=== PATIENT | male | born 1990 | race Caucasian/White ===

== ENCOUNTER 2017-04-21 14:37 | Emergency (ER) | payer SELFPAY ==
--- NOTE | 2017-04-21 14:53 | ERPHSYRPT ---
- History of Present Illness Time Seen by Provider: 04/21/17 14:53 Source: family Exam Limitations: no limitations Patient Subjective Stated Complaint: PT BROUGHT IN BY IN LAWS AND SOON TO BE EX , FOR CONCERNS OF BEING SLEEPY TODAY, THEY WHERE AFRAID HE TOOK MEDICINES . PT IS UNDER A LOT OF STRESS. Triage Nursing Assessment: PT ALERT, RESP EASY, SKIN W/D PINK. PT TOOK ONE ADDERALL TODAY AND ONE YESTERDAY, THEY ARE NOT HES MEDS. PT DENIES BEING SUICIDAL OR HOMICIDAL Physician History: 26-year-old male brought into the emergency room by his in-laws, states that he is acting weird, going in and out with his thought process as well as possibly hallucinating. Patient states that he is undergoing lots of stress recently with divorce and at work. Patient denies any suicidal or homicidal ideation and acting totally normal in the emergency room Timing/Duration: today Associated Symptoms: denies symptoms Allergies/Adverse Reactions: UNOBTAINABLE Allergy (Unverified 04/21/17 14:49) Home Medications: No Reportable Medications [No Reported Medications] 04/21/17 [History] Hx Influenza Vaccination/Date Given: No Hx Pneumococcal Vaccination/Date Given: No Immunizations Up to Date: Yes - Review of Systems Constitutional: No Fever, No Chills Eyes: No Symptoms Ears, Nose, & Throat: No Symptoms Respiratory: No Cough, No Dyspnea Cardiac: No Chest Pain, No Edema, No Syncope Abdominal/Gastrointestinal: No Abdominal Pain, No Nausea, No Vomiting, No Diarrhea Genitourinary Symptoms: No Dysuria Musculoskeletal: No Back Pain, No Neck Pain Skin: No Rash Neurological: No Dizziness, No Focal Weakness, No Sensory Changes Psychological: Drug Abuse, Anxiety, Depression, Emotional Lability, Hallucinations, Mood Changes, No Alcohol Abuse, No Suicidal Ideations, No Homicidal Ideations, No Memory Loss Endocrine: No Symptoms All Other Systems: Reviewed and Negative - Past Medical History Pertinent Past Medical History: Yes Psycho-Social History: Attention Deficit Disorder - Past Surgical History Past Surgical History: No - Social History Smoking Status: Current every day smoker Exposure to second hand smoke: Yes Drug Use: marijuana Patient Lives Alone: Yes - Nursing Vital Signs Nursing Vital Signs: Initial Vital Signs Pulse Rate 78 04/21/17 14:40 Respiratory Rate 14 04/21/17 14:40 Blood Pressure 159/85 04/21/17 14:40 O2 Sat by Pulse Oximetry 100 04/21/17 14:40 Pain Scale Pain Intensity 0 - Physical Exam General Appearance: no apparent distress, alert Eye Exam: PERRL/EOMI, eyes nml inspection Ears, Nose, Throat Exam: normal ENT inspection, TMs normal, pharynx normal, moist mucous membranes Neck Exam: normal inspection, non-tender, supple, full range of motion Respiratory Exam: normal breath sounds, lungs clear, No respiratory distress Cardiovascular Exam: regular rate/rhythm, normal heart sounds, normal peripheral pulses Gastrointestinal/Abdomen Exam: soft, normal bowel sounds, No tenderness, No mass Back Exam: normal inspection, normal range of motion, No CVA tenderness, No vertebral tenderness Extremity Exam: normal inspection, normal range of motion, pelvis stable Neurologic Exam: alert, oriented x 3, cooperative, normal mood/affect, nml cerebellar function, nml station & gait, sensation nml, No motor deficits Skin Exam: normal color, warm, dry, No rash Lymphatic Exam: No adenopathy SpO2: 100 Oxygen Delivery: Room Air - Course Nursing assessment & vital signs reviewed: Yes Ordered Tests: Active Orders 24 hr Category Date Time Status Clean Catch Urine Specimen STAT Care 04/21/17 15:35 Active EKG-ER Only STAT Care 04/21/17 14:56 Active IV Insertion STAT Care 04/21/17 15:15 Active CBC W DIFF Stat Lab 04/21/17 15:15 Completed CMP Stat Lab 04/21/17 15:15 Received ETHYL ALCOHOL Stat Lab 04/21/17 15:15 Received SALICYLATE Stat Lab 04/21/17 15:15 Received Urine Triage Profile Stat Lab 04/21/17 14:56 Completed Medication Summary Generic Name Dose Route Start Last Admin Trade Name Freq PRN Reason Stop Dose Admin Sodium Chloride 1,000 mls @ 999 mls/hr 04/21/17 14:56 04/21/17 15:16 Sodium Chloride 0.9% 1000 Ml IV 04/21/17 15:56 999 mls/hr .Q1H1M STA Administration Discontinued Medications Generic Name Dose Route Start Last Admin Trade Name Freq PRN Reason Stop Dose Admin Sodium Chloride Confirm 04/21/17 15:15 Sodium Chloride 0.9% 1000 Ml Administered 04/21/17 15:16 Dose 1,000 mls @ ud .ROUTE .K-MED ONE Lab/Rad Data: Laboratory Result Diagrams 04/21/17 15:15 Laboratory Results 04/21/17 04/21/17 Range/Units 15:15 14:56 WBC 9.1 (4.0-10.5) K/mm3 RBC 5.34 (4.1-5.6) M/mm3 Hgb 16.0 (12.5-18.0) gm/dl Hct 45.2 (42-50) % MCV 84.6 (78-100) fl MCH 30.0 (26-32) pg MCHC 35.4 (32-36) g/dl RDW 13.6 (11.5-14.0) % Plt Count 218 (150-450) K/mm3 MPV 11.4 H (6-9.5) fl Gran % 60.9 (36.0-66.0) % Lymphocytes % 26.4 (24.0-44.0) % Monocytes % 8.1 (0.0-12.0) % Eosinophils % 4.3 (0.00-5.0) % Basophils % 0.3 (0.0-0.4) % Basophils # 0.03 (0-0.4) Urine Opiates Level NEG. (NEGATIVE) Ur Methadone NEG. (NEGATIVE) Urine Barbiturates NEG. (NEGATIVE) Ur Phencyclidine (PCP) NEG. (NEGATIVE) Urine Amphetamine POS. (NEGATIVE) U Benzodiazepine Level NEG. (NEGATIVE) Urine Cocaine NEG. (NEGATIVE) Urine Marijuana (THC) POS. (NEGATIVE) - Progress Progress: improved Counseled pt/family regarding: drug and/or alcohol abuse, lab results, diagnosis , need for follow-up, smoking cessation - Departure Time of Disposition: 15:50 Departure Disposition: Home Clinical Impression: Marijuana use Amphetamine adverse reaction Qualifiers: Encounter type: initial encounter Qualified Code(s): T43.625A - Adverse effect of amphetamines, initial encounter Condition: Stable Critical Care Time: No Referrals: JOSE BHANDARI [ACTIVE STAFF] - Instructions: Dextroamphetamine and Amphetamine.
[2017-04-21] MEDS ORDERED: Sodium Chloride 0.9% 1000 ML 1,000 ML IV STA (14:56)
[2017-04-21] MEDS ORDERED: Sodium Chloride 0.9% 1000 ML 1,000 ML ONE (15:15)
[2017-04-21 15:42] LABS: BASOPHIL % 0.3 % (0.0-0.4); Eosinophil % 4.3 % (0.00-5.0); Granulocytes % 60.9 % (36.0-66.0); Lymphocytes % 26.4 % (24.0-44.0); Mean Cell Volume 84.6 fl (78-100); Mean Platelet Volume 11.4 fl (6-9.5); Monocytes % 8.1 % (0.0-12.0); Platelet Count 218 K/mm3 (150-450); Red Blood Count 5.34 M/mm3 (4.1-5.6); Red Cell Distribution Width 13.6 % (11.5-14.0); White Blood Count 9.1 K/mm3 (4.0-10.5)
[2017-04-21 15:56] LABS: ALBUMIN 4.6 g/dL (3.4-5.0); ALKALINE PHOSPHATASE 50 U/L (46-116); BLOOD UREA NITROGEN 13 mg/dL (9-20); CHLORIDE 105 mEq/L (98-107); Carbon Dioxide 25.4 mEq/L (21-32); ETHYL ALCOHOL < 0.010 % (0.00-0.01); Glucose 107 MG/DL (70-110); Potassium 3.3 mEq/L (3.5-5.1); SGOT/AST 4 U/L (15-37); SGPT/ALT 20 U/L (12-78); SODIUM 141 mEq/L (136-145); Total Protein 7.8 gm/dL (6.4-8.2)
[2017-04-21 16:10] VITALS: BP 138/76; PULSE 84; O2SAT 99
== END 2017-04-21 16:11 | disposition home or self-care (01) ==
LOC: ED 14:37
DX: T43.625A Adverse effect of amphetamines, initial encounter (principal); F12.90 Cannabis use, unspecified, uncomplicated; F19.10 Other psychoactive substance abuse, uncomplicated; R44.3 Hallucinations, unspecified; R45.86 Emotional lability; F39 Unspecified mood [affective] disorder; F41.9 Anxiety disorder, unspecified; F98.8 Other specified behavioral and emotional disorders with onset usually occurring in childhood and adolescence
CPT/HCPCS: 36000; 36415; 80053; 80307; 85025; 93005; 96360; 99284; G0481

== ENCOUNTER 2023-10-04 21:41 | Emergency (ER) | payer SELFPAY ==
[2023-10-04 21:53] VITALS: TEMP 98.1
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
[2023-10-04 22:13] VITALS: O2SAT 100
[2023-10-04 22:34] LABS: Barbiturate,Urine NEGATIVE (NEGATIVE); Benzodiazepine,Urine NEGATIVE (NEGATIVE); Cocaine,Urine NEGATIVE (NEGATIVE); Methadone,Urine NEGATIVE (NEGATIVE); Opiate,Urine NEGATIVE (NEGATIVE); PCP,Urine NEGATIVE (NEGATIVE); THC,Urine POSITIVE (NEGATIVE)
[2023-10-04 22:50] LABS: Amphetamine,Urine POSITIVE (NEGATIVE)
[2023-10-04 23:01] VITALS: BP 143/103; PULSE 92; RESP 14
== END 2023-10-04 23:07 | disposition home or self-care (01) ==
LOC: ED 21:41
DX: Z02.89 Encounter for other administrative examinations (principal)
CPT/HCPCS: 36415; 80307; 99281

== ENCOUNTER 2025-01-22 15:12 | Emergency (ER) | payer OTHER ==
[2025-01-22 15:38] VITALS: PULSE 99; RESP 7; TEMP 96.6; O2SAT 98
--- NOTE | 2025-01-22 15:45 | ERPHSYRPT ---
- History of Present Illness Source: patient Exam Limitations: no limitations Patient Subjective Stated Complaint: three weeks, had sciatica pain. went to [facility] care on sunday and got steroid and muscle relaxer but states it has not been efffective. Pt has been using ice at home to relive the pain Triage Nursing Assessment: pt arrived with back pain that radiates down to left leg, hypertensive. ambulates on own with no assistance. call light within reach, no complaints at this time. Physician History: Patient has a history of back pain. It has been going on for about 3 to 4 days. He was seen at urgent care the other day. They put him on prednisone. His back pain is in the lumbar area it radiates down the back and side of his left leg. It does not go much below his knee. He says occasionally goes on the outer aspect of his left leg. He does not have any neurological deficits. He has no weakness or sensory deficits. He says the pain is stabbing and tingling in and basically described paresthesia.Movement makes it worse rest and certain positions makes it better. He does not have any bowel or bladder dysfunction he has no saddle paresthesia. He is had problems like this in the past. Is a few years ago. He had an x-ray at that time. There was no abnormalities. He has not done any physical therapy. Method of Injury: unknown Allergies/Adverse Reactions: No Known Drug Allergies Allergy (Unverified 10/04/23 21:47) Hx Tetanus, Diphtheria Vaccination/Date Given: No Hx Influenza Vaccination/Date Given: No Hx Pneumococcal Vaccination/Date Given: No Immunizations Up to Date: No Travel Risk - International Travel Have you traveled outside of the country in past 3 weeks: No - Emerging Infectious Disease Are you exhibiting symptoms associated with any current EIDs: No - Review of Systems Constitutional: No Symptoms Eyes: No Symptoms Abdominal/Gastrointestinal: No Symptoms Genitourinary Symptoms: No Symptoms Musculoskeletal: Back Pain Skin: No Symptoms Psychological: No Symptoms - Past Medical History Pertinent Past Medical History: Yes Psycho-Social History: Attention Deficit Disorder - Past Surgical History Past Surgical History: No Neuro Surgical History: No Pertinent History Cardiac: No Pertinent History Respiratory: No Pertinent History Gastrointestinal: No Pertinent History Genitourinary: No Pertinent History Musculoskeletal: No Pertinent History Male Surgical History: No Pertinent History - Social History Smoking Status: Current every day smoker How long have you smoked: 12 years Exposure to second hand smoke: Yes Drug Use: none - Social Determinants of Health Will the patient participate in the screening: Yes Do you worry about a steady place to live?: No Do you have any problems with any of the following?: No known problems, Oven/Stove not working In the past 12 months,have you had to go without utilities?: No Transportation Issues: No Has anyone in your support network made you feel unsafe?: No Have you or anyone in your house had to go w/o enough food: No - Nursing Vital Signs Nursing Vital Signs: Initial Vital Signs Temperature 96.7 F 01/22/25 15:19 Pulse Rate 108 H 01/22/25 15:19 Respiratory Rate 18 01/22/25 15:19 O2 Sat by Pulse Oximetry 100 01/22/25 15:19 Pain Scale Pain Intensity 9 - Physical Exam General Appearance: no apparent distress Eye Exam: PERRL/EOMI Respiratory Exam: normal breath sounds Cardiovascular Exam: tachycardia Gastrointestinal Exam: soft, normal bowel sounds Extremity Exam: normal inspection, pelvis stable Neurologic Exam: alert, oriented x 3, cooperative, No motor deficits, No sensory deficit Skin Exam: normal color, warm, dry SpO2: 98 Ordered Tests: Medication Summary Discontinued Medications Generic Name Dose Route Start Last Admin Trade Name Anthony PRN Reason Stop Dose Admin Nalbuphine HCl 10 mg 01/22/25 15:42 01/22/25 15:49 Nalbuphine Hcl 10 Mg/Ml Ampul IM 01/22/25 15:43 10 mg STAT ONE Administration Nalbuphine HCl Confirm 01/22/25 15:46 Nalbuphine Hcl 10 Mg/Ml Ampul Administered 01/22/25 15:47 Dose 10 mg .ROUTE .STK-MED ONE - Progress Progress: improved Progress Note: 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 At this time he stable. There is no acute cord symptoms. He is already on prednisone I will keep him on that. I am going to give him some [place] for the pain. I wanted to refer him to physical therapy. I contacted them and they said they cannot without a primary doctor. We discussed to have him follow-up with a primary doctor and get into physical therapy through that. He is to return if symptoms worsen. 01/22/25 16:08 - Departure Departure Disposition: Home Clinical Impression: Lumbar back pain with radiculopathy affecting left lower extremity Condition: Stable Critical Care Time: No Referrals: DOCTOR,NO FAMILY [Primary Care Provider, UNKNOWN] - Follow up/PCP as directed Instructions: Sciatica (DC) Prescriptions: Hydrocodone/Acetaminophen [Hydrocodone-Acetamin 5-325 mg] 1 tab PO Q6HPRN PRN #14 tablet MDD 4 PRN Reason: Pain
[2025-01-22] MEDS ORDERED: Nubain 10 MG/ML ONE (15:46)
[2025-01-22] MEDS: Nubain 10 MG/ML IM ONE (15:49)
[2025-01-22 16:16] VITALS: BP 156/105
== END 2025-01-22 16:33 | disposition home or self-care (01) ==
LOC: ED 15:12
DX: M54.16 Radiculopathy, lumbar region (principal); M54.50 Low back pain, unspecified; Z79.891 Long term (current) use of opiate analgesic; Z72.0 Tobacco use; Z59.89 Other problems related to housing and economic circumstances